=== PATIENT | female | born 1965 | race Caucasian/White ===

== ENCOUNTER 2021-09-06 19:00 | Outpatient (CLI) | payer OTHER, SELFPAY ==
--- NOTE | 2021-10-08 09:50 | W.PM.SLEEP ---
Sleep Study Details Details Interpreting Provider: Andrew Horn MD Date of Sleep Study: 09/06/21 Sleep Study Details: STUDY TYPE:? Home BMI:? 34.4 ORDERING PROVIDER:? Nellie INDICATION:? Concerns about sleep apnea ? SLEEP SUMMARY:? Monitor time 591.7 minutes RESPIRATORY SUMMARY:? AHI 54.4 majority of study was done supine. Low oxygen was 81. 10% of study oxygen was less than 90% and 0.1% of study oxygen less than 85% snore summary 1.9% PERIODIC LIMB MOVEMENTS OF SLEEP:? Not recorded CARDIAC:? Range 47 to 94 mean 64.3 IMPRESSION:? Severe obstructive sleep apnea RECOMMENDATION: In-lab titration or AutoSet CPAP pressure 4-17
== END 2021-09-06 19:01 | disposition home or self-care (01) ==
LOC: SLEEP 09-25 13:32
PROVIDERS: PCP Family Medicine; Visit Provider Otolaryngology
DX: G47.33 Obstructive sleep apnea (adult) (pediatric) (principal)
CPT/HCPCS: 95806

== ENCOUNTER 2022-08-12 09:09 | Outpatient (CLI) | payer OTHER, SELFPAY | END 2022-08-12 09:10 | disposition home or self-care (01) | PROVIDERS: PCP Family Medicine; Visit Provider Family Medicine | DX: Z00.00 Encounter for general adult medical examination without abnormal findings (principal); I10 Essential (primary) hypertension; E78.5 Hyperlipidemia, unspecified; E66.9 Obesity, unspecified | CPT/HCPCS: 80053; 80061 ==

== ENCOUNTER 2023-08-10 09:01 | Outpatient (CLI) | payer OTHER, SELFPAY ==
--- OUTSIDE RECORDS SUMMARY | 2023-08-10 09:03 | XMS_ITS | Clinical Summary ---
Author Organization [facility] Address [address] [place] [id number] Care Team Providers Care Radio Communications Superintendent Name Role Phone Unavailable Primary Care Provider Unavailabl e Allergies No known active allergies Medications Medication Sig Dispensed Refills Start Date End Date Status ketorolac (TORADOL) 10 MG tablet Take 1 tablet (10 mg) by mouth every 6 hours as needed for moderate pain (4-6) 20 tablet 01/04/2022 Active cyclobenzaprine (FLEXERIL) 10 MG tablet Take 1 tablet (10 mg) by mouth 3 times daily as needed for muscle spasms 10 tablet 01/04/2022 Active lidocaine (LIDODERM) 5 % patch Place 1 patch onto the skin every 24 hours To prevent lidocaine toxicity, patient should be patch free for 12 hrs daily. 15 patch 01/04/2022 Active Social History Tobacco Use Types Packs/Day Years Used Date Smoking Tobacco: Never Assessed Adolescent Education Answer Date Record ed Getting School Help Needed Not on file 11/28 Sex and Gender Information Value Date Recorded Sex Assigned at Not on file Gender Identity Not on file Sexual Orientation Not on file Last Filed Vital Signs Vital Sign Reading Time Taken Comments Blood Pressure 167/97 01/04/2022 7:59 PM CONTROL CENTER OPERATOR Pulse 94 01/04/2022 7:59 PM CONTROL CENTER OPERATOR Temperature 36.7 ??C (98.1 ??F) 01/04/2022 7:59 PM CS T Respiratory Rate 20 01/04/2022 7:59 PM CONTROL CENTER OPERATOR Oxygen Saturation 98% 01/04/2022 7:59 PM CONTROL CENTER OPERATOR Inhaled Oxygen Concentration - - Weight 90.7 kg (200 lb) 01/04/2022 7:59 PM CONTROL CENTER OPERATOR Height 165.1 cm (5' 5) 01/04/2022 7:59 PM CONTROL CENTER OPERATOR Body Mass Index 33.28 01/04/2022 7:59 PM CONTROL CENTER OPERATOR Plan of Treatment Health Maintenance Due Date Last Done Comments ADVANCE CARE PLANNING 1967 ANNUAL REVIEW OF HM ORDERS 1967 CT COLONOGRAPHY 1967 FIT 1967 FLEX SIG 1967 GLUCOSE 1967 MAMMO SCREENING 1967 YEARLY PREVENTIVE VISIT 1967 sDNA (Cologuard) 1967 COLONOSCOPY 10/04/1977 COLORECTAL CANCER SCREENING 10/04/1977 HIV SCREENING 10/04/1982 HEPATITIS C SCREENING 10/04/1985 HEPATITIS B IMMUNIZATION (1 of 3 - 19+ 3-dose series) 10/04/1986 PAP 10/04/1988 LIPID 2007 ZOSTER IMMUNIZATION (1 of 2) 10/04/2017 COVID-19 Vaccine (3 - 2022-2 4 season) 2022 07/22/2020, 07/01/2020 PHQ-2 (once per calendar year) 2023 INFLUENZA VACCINE (Season Ended) 2023 11/28/2018, 12/01/2010, 12/26/2008 DTAP/TDAP/TD IMMUNIZATION (3 - Td or Tdap) 2028 2018, 05/27/2008 HPV IMMUNIZATION Aged Out No longer e ligible based on patient's age to complete this topic IPV IMMUNIZATION Aged Out No longer e ligible based on patient's age to complete this topic MENINGITIS IMMUNIZATION Aged Out No l onger eligible based on patient's age to complete this topic Pneumococcal Vaccine: Pediatrics (0 to 5 Years) and At-Risk Patients (6 to 64 Years) Aged Out No longer eligible b ased on patient's age to complete this topic RSV MONOCLONAL ANTIBODY Aged Out No l onger eligible based on patient's age to complete this topic
--- OUTSIDE RECORDS SUMMARY | 2023-08-10 09:03 | XMS_ITS | Referral Summary ---
Author Organization [facility] Address [address] [place] [id number] Care Team Providers Care Last Ironer Name Role Phone Unavailable Primary Care Provider [...] Comments Blood Pressure 167/97 01/04/2022 7:59 PM SHANK BURNISHER Pulse 94 01/04/2022 7:59 PM SHANK BURNISHER Temperature 36.7 ??C (98.1 ??F) 01/04/2022 7:59 PM CS T Respiratory Rate 20 01/04/2022 7:59 PM SHANK BURNISHER Oxygen Saturation 98% 01/04/2022 7:59 PM SHANK BURNISHER Inhaled Oxygen Concentration - - Weight 90.7 kg (200 lb) 01/04/2022 7:59 PM SHANK BURNISHER Height 165.1 cm (5' 5) 01/04/2022 7:59 PM SHANK BURNISHER Body Mass Index 33.28 01/04/2022 7:59 PM SHANK BURNISHER Plan of Treatment Not on file
--- OUTSIDE RECORDS SUMMARY | 2023-08-10 09:03 | XMS_ITS | Clinical Summary ---
Author Organization [facility] Address [address], [place] [address] Care Team Providers Care Professional Benefits Sales Consultant Name Role Phone Unavailable Primary Care Provider Unavailabl e Source Comments You are receiving this document as you are listed as the primary care provider,follow-up provider, or the patient has been referred to you for consultation.This is in compliance with the Medicare and[facility] E[facility] Incentive Program,which states Providers who transition their patient to another setting of careor provider of care or refers their patient to another provider of care shouldprovide summary care record for each transition of care or referral. [employer] Allergies Active Allergy Reactions Criticality Noted Date Comments Latex 05/19/2010 PN: Converted from LW Latex Sensitivity Flag Medications Medication Sig Dispensed Refills Start Date End Date Status unknown medication Indications: PN: 04/27/2008 Active Social History Tobacco Use Types Packs/Day Years Used Date Smoking Tobacco: Never Sex and Gender Information Value Date Recorded Sex Assigned at Not on file Gender Identity Not on file Sexual Orientation Not on file Last Filed Vital Signs Vital Sign Reading Time Taken Comments Blood Pressure 113/69 04/27/2008 12:37 PM CDT Pulse 86 04/27/2008 12:37 PM CDT Temperature 36.2 ??C (97.2 ??F) 04/27/2008 1 2:37 PM CDT ORAL C: 36.2 C Respiratory Rate 16 04/27/2008 12:3 7 PM CDT Oxygen Saturation 97% 04/27/2008 12: 37 PM CDT Inhaled Oxygen Concentration - - Weight 88.5 kg (195 lb) 01/18/2022 2:32 PM BACK MAKER Height 165.1 cm (5' 5) 01/18/2022 2:32 PM BACK MAKER Body Mass Index 32.45 01/18/2022 2:32 PM BACK MAKER Plan of Treatment Health Maintenance Due Date Last Done Comments Cervical Cancer Screening Due 1965 Colon Cancer Screening Plan Due 1965 Hep C Screening (Preventive Services) 1967 Mammogram 1967 HIV Screening (Preventive Services) 1983 Adult Preventive Visit 10/04/1985 HepB (1) 10/04/1986 Cholesterol 10/04/2012 Zoster/Shingles (1 of 2) 10/04/2017 COVID-19 Vaccine (3 - 2022-2 4 season) 2022 07/22/2020, 07/01/2020 Influenza (Season Ended) 2023 019, 12/01/2010 DTaP/Tdap/Td (3 - Tdap) 2028 10/06/19 19, 05/27/2008 HepA Aged Out No longer eligi ble based on patient's age to complete this topic Hib Aged Out No longer eligi ble based on patient's age to complete this topic IPV (Polio) Aged Out No longer eligi ble based on patient's age to complete this topic MCV4 Aged Out No longer eligi ble based on patient's age to complete this topic Pneumococcal Aged Out No longer eligi ble based on patient's age to complete this topic
--- NOTE | 2023-08-10 09:15 | CRLHL7_ITS ---
For Patients: As a result of the Century Cures Act, medical imaging exams and procedure reports are released immediately into your electronic medical record. You may view this report before your referring provider. If you have questions, please contact your health care provider. BILATERAL SCREENING MAMMOGRAM WITH COMPUTER-AIDED DETECTION AND TOMOSYNTHESIS TECHNIQUE: CC and MLO views were obtained. These mammographic images have been obtained using full-field digital technique. These mammographic images were interpreted with the benefit of computer-aided detection. Breast Tomosynthesis was used in this interpretation. COMPARISON FILM: 07/16/22, 07/14/21, 05/19/20. FINDINGS: The breasts are heterogeneously dense, which may obscure small masses. IMPRESSION: There is no radiographic evidence for malignancy. ASSESSMENT: BI-RADS Category 2: Benign RECOMMENDATION: Routine screening mammogram in 1 year. A lay language report of this examination will be provided to the patient. Sang Beavers M.D. Diagnostic Radiologist [email or web address] SP/Dictated by: Sang Beavers MD @ 08/16/2023 11:15:00 AM (Electronically Signed)
== END 2023-08-10 09:02 | disposition home or self-care (01) ==
LOC: MAMMO 09:01
PROVIDERS: PCP Family Medicine; Visit Provider Family Medicine
DX: Z12.31 Encounter for screening mammogram for malignant neoplasm of breast (principal); R92.2 Inconclusive mammogram
CPT/HCPCS: 77063; 77067

== ENCOUNTER 2023-08-11 14:46 | Outpatient (CLI) | payer OTHER, SELFPAY ==
--- OUTSIDE RECORDS SUMMARY | 2023-08-11 14:49 | XMS_ITS | Clinical Summary ---
Author Organization [facility] Address [address] [place] [id number] Care Team Providers Care Cis Coordinator Name Role Phone Unavailable Primary Care Provider [...] Comments Blood Pressure 167/97 01/04/2022 7:59 PM OUTPATIENT THERAPIST Pulse 94 01/04/2022 7:59 PM OUTPATIENT THERAPIST Temperature 36.7 ??C (98.1 ??F) 01/04/2022 7:59 PM CS T Respiratory Rate 20 01/04/2022 7:59 PM OUTPATIENT THERAPIST Oxygen Saturation 98% 01/04/2022 7:59 PM OUTPATIENT THERAPIST Inhaled Oxygen Concentration - - Weight 90.7 kg (200 lb) 01/04/2022 7:59 PM OUTPATIENT THERAPIST Height 165.1 cm (5' 5) 01/04/2022 7:59 PM OUTPATIENT THERAPIST Body Mass Index 33.28 01/04/2022 7:59 PM OUTPATIENT THERAPIST Plan of Treatment Health Maintenance Due Date [...]
--- OUTSIDE RECORDS SUMMARY | 2023-08-11 14:49 | XMS_ITS | Referral Summary ---
Author Organization [facility] Address [address] [place] [address] Care Team Providers Care Supervisor Motor Vehicle Assembly Name Role Phone Unavailable Primary Care Provider [...] Comments Blood Pressure 167/97 01/04/2022 7:59 PM HUMAN RESOURCES VICE PRESIDENT Pulse 94 01/04/2022 7:59 PM HUMAN RESOURCES VICE PRESIDENT Temperature 36.7 ??C (98.1 ??F) 01/04/2022 7:59 PM CS T Respiratory Rate 20 01/04/2022 7:59 PM HUMAN RESOURCES VICE PRESIDENT Oxygen Saturation 98% 01/04/2022 7:59 PM HUMAN RESOURCES VICE PRESIDENT Inhaled Oxygen Concentration - - Weight 90.7 kg (200 lb) 01/04/2022 7:59 PM HUMAN RESOURCES VICE PRESIDENT Height 165.1 cm (5' 5) 01/04/2022 7:59 PM HUMAN RESOURCES VICE PRESIDENT Body Mass Index 33.28 01/04/2022 7:59 PM HUMAN RESOURCES VICE PRESIDENT Plan of Treatment Not on file
--- OUTSIDE RECORDS SUMMARY | 2023-08-11 14:49 | XMS_ITS | Clinical Summary ---
Author Organization [facility] Address [address], [place] [address] Care Team Providers Care Trim Mounter Name Role Phone Unavailable Primary Care Provider Unavailabl e Source Comments You are receiving this document as you are listed as the primary care provider,follow-up provider, or the patient has been referred to you for consultation.This is in compliance with the Medicare and[facility] E[facility] Incentive Program,which states Providers who transition their patient to another setting of careor provider of care or refers their patient to another provider of care shouldprovide summary care record for each transition of care or referral. [facility] Allergies Active Allergy Reactions Criticality Noted Date [...] 88.5 kg (195 lb) 01/18/2022 2:32 PM ASTRONAUT MISSION SPECIALIST Height 165.1 cm (5' 5) 01/18/2022 2:32 PM ASTRONAUT MISSION SPECIALIST Body Mass Index 32.45 01/18/2022 2:32 PM ASTRONAUT MISSION SPECIALIST Plan of Treatment Health Maintenance Due Date [...]
== END 2023-08-11 14:47 | disposition home or self-care (01) ==
LOC: LKVREF 14:46
PROVIDERS: PCP Family Medicine; Visit Provider Family Medicine
DX: Z00.00 Encounter for general adult medical examination without abnormal findings (principal); E78.5 Hyperlipidemia, unspecified; I10 Essential (primary) hypertension
CPT/HCPCS: 80053; 80061

== ENCOUNTER 2024-08-24 08:40 | Outpatient (CLI) | payer OTHER, SELFPAY ==
--- NOTE | 2024-08-24 08:15 | CRLHL7_ITS ---
For Patients: As a result of the Century Cures Act, medical imaging exams and procedure reports are released immediately into your electronic medical record. You may view this report before your referring provider. If you have questions, please contact your health care provider. INDICATION: bilateral screening mammogram, asymptomatic 58 year old female COMPARISON: 08/10/2023, 07/16/2022, 07/14/2021 TECHNIQUE: Digital mammogram in CC and MLO projections including computer-aided detection (CAD) and tomosynthesis. BREAST COMPOSITION: There are scattered areas of fibroglandular density. FINDINGS: No suspicious findings. ASSESSMENT: BI-RADS 1 Negative RECOMMENDATION: Annual screening mammogram. A lay language report of this examination will be provided to the patient. Dictated by: Sang Beavers MD @ 08/24/2024 10:17:44 (Electronically Signed)
== END 2024-08-24 08:41 | disposition home or self-care (01) ==
LOC: MAMMO 08:42
PROVIDERS: PCP Family Medicine; Visit Provider Family Medicine
DX: Z12.31 Encounter for screening mammogram for malignant neoplasm of breast (principal); I10 Essential (primary) hypertension; E78.5 Hyperlipidemia, unspecified
CPT/HCPCS: 77063; 77067; 80053; 80061

== ENCOUNTER 2024-08-24 09:35 | Outpatient (CLI) | payer OTHER, SELFPAY | END 2024-08-24 09:36 | disposition home or self-care (01) | LOC: NFLDREF 08-29 02:17 | PROVIDERS: PCP Family Medicine; Referring Provider Family Medicine; Visit Provider Family Medicine | DX: E78.5 Hyperlipidemia, unspecified (principal); I10 Essential (primary) hypertension | CPT/HCPCS: 80053; 80061 ==